=== PATIENT | male | born 1955 | race Caucasian/White ===

== ENCOUNTER 2016-12-09 10:51 | Emergency (ER) | payer OTHER ==
[~2016-12-09] VITALS: Ht 177.8 cm; Wt 76.5 kg
[~2016-12-09 10:51] MED LIST: CYCL-36 PO; HYDR-3533 PO; IBUP-232 PO; METO100T PO
[2016-12-09 10:55] VITALS: BP 156/115; PULSE 103; RESP 22; TEMP 98.3; O2SAT 96
[2016-12-09] MEDS ORDERED: ALBU.5I NEB (11:01)
[2016-12-09] MEDS ORDERED: METO100T PO (11:01)
[2016-12-09 11:07] VITALS: BP 166/93; PULSE 93; RESP 22; O2SAT 95
[2016-12-09 11:11] VITALS: BP 166/93; PULSE 90; RESP 22; TEMP 98.2; O2SAT 96
[2016-12-09] MEDS ORDERED: LORazepam 2 MG/ML VIAL IV PUSH ONE (11:15)
[2016-12-09] MEDS ORDERED: KETOROLAC TROMETHAMINE 30 MG/ML (IVP) VIAL IV PUSH ONE (11:15)
[2016-12-09] MEDS ORDERED: DEXAMETHASONE SOD PHOS 20 MG/5 ML VIAL IV PUSH ONE (11:15)
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
[2016-12-09 11:27] LABS: BLOOD GAS BASE EXCESS -0.9 mmol/L (-2-2); BLOOD GAS CARBOXYHEMOGLOBIN 5.8 % (0-4); BLOOD GAS HCO3 22 mmol/L (22-26); BLOOD GAS METHEMOGLOBIN 1.2 % (0-2); BLOOD GAS O2 HGB SATURATION 90 % (90-100); BLOOD GAS OXYGEN CONTENT 19.4 Vol % (12.0-20.0); BLOOD GAS PCO2 31 mmHG (38-42); BLOOD GAS PO2 78 mmHG (61-120); BLOOD GAS TOTAL HGB 15.3 G/DL (12.0-16.0); TEMP CORR TO 98.6
[2016-12-09 11:28] LABS: CRITICAL VALUE YES; DRAW SITE LT RADIAL; FIO2 21 %; NUMBER OF ARTERIAL PUNCTURES 1; STAT YES; ULNAR PULSE PRESENT
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
[2016-12-09 11:55] VITALS: BP 149/91; PULSE 84; RESP 20; O2SAT 97
[2016-12-09] MEDS ORDERED: NAPR500 PO (11:59)
[2016-12-09] MEDS ORDERED: CYCL1TAB29 PO (11:59)
== END 2016-12-09 12:20 | disposition home or self-care (01) ==
LOC: PHED 10:51
DX: J98.01 Acute bronchospasm (principal); M54.5 Low back pain; G89.29 Other chronic pain; I10 Essential (primary) hypertension; J44.9 Chronic obstructive pulmonary disease, unspecified; F17.210 Nicotine dependence, cigarettes, uncomplicated; X50.0XXA Overexertion from strenuous movement or load, initial encounter; X08.8XXA Exposure to other specified smoke, fire and flames, initial encounter; Y93.E9 Activity, other interior property and clothing maintenance; Y92.009 Unspecified place in unspecified non-institutional (private) residence as the place of occurrence of the external cause
CPT/HCPCS: 36600; 71020; 82805; 96374; 96375; 99283; J1100; J1885; J2060